=== PATIENT | male | born 1995 | race Hispanic/Latino ===

== ENCOUNTER 2024-03-25 11:21 | Emergency (ER) | payer SELFPAY ==
[2024-03-25 11:24] VITALS: BP 148/99
[2024-03-25 12:04] LABS: % Basophils 0.2 % (0-2); % Eosinophils 0.7 % (0-6); % Immature Granulocytes 0.2 % (0-0.5); % Lymphocytes 27.4 % (20.5-51.1); % Neutrophils 64.5 % (42.2-75.2); Absolute Eosinophils 0.1 10^3/uL (0-0.7); Absolute Lymphocytes 2.5 10^3/uL (1.2-3.4); Absolute Monocytes 0.6 10^3/uL (0.1-0.6); Absolute Neutrophils 5.9 10^3/uL (1.4-6.5); Hematocrit 41.3 % (39.0-52.0); Hemoglobin 14.5 g/dL (13.0-18.0); Mean Corp Hgb Conc. 35.1 g/dL (33.0-37.0); Mean Corpuscular Hgb 30.5 pg (27.0-31.0); Mean Corpuscular Volume 86.9 fL (80.0-94.0); Mean Platelet Volume 9.7 fL (7.4-10.4); Nucleated Red Blood Cells % 0 % (-); Platelet Count 298 10^3/uL (130-400); Red Blood Cell Count 4.75 10^6/uL (4.70-6.10); Red Cell Dist. Width 12.3 % (11.5-14.5); White Blood Cell Count 9.1 10^3/uL (4.8-10.8)
[2024-03-25 12:16] LABS: ALT (SGPT) 16 U/L (0-50); AST (SGOT) 22 U/L (17-59); Albumin 4.6 g/dl (3.5-5.0); Alkaline Phosphatase 67 U/L (38-126); Blood Urea Nitrogen 13 mg/dl (9-20); Calcium 9.6 mg/dl (8.4-10.2); Carbon Dioxide 31 mmol/L (22-30); Chloride 100 mmol/L (98-107); Glucose 95 mg/dl (70-99); Potassium 4.2 mmol/L (3.5-5.1); Sodium 142 mmol/L (135-145); Total Bilirubin 0.5 mg/dl (0.2-1.3); Total Protein 7.8 g/dl (6.3-8.2); eGFR > 60.00
[2024-03-25] MEDS: PROTONIX IV 40 MG IV (12:20)
[2024-03-25] MEDS: CARAFATE 1 GRAM PO (12:20)
--- NOTE | 2024-03-25 12:21 | ED.GENMED ---
History of Present Illness
<Jey Frazier MD, Resident - Last Filed: 03/25/24 14:21>
General
Chief Complaint: Abdominal Pain
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
Time Seen by Provider: 03/25/24 11:34
Travel History
Have you traveled to any high risk areas for coronavirus over the past 14 days?: No
Have you had any contact with someone who has COVID-19?: No
Do you have any symptoms of coronavirus? Fever > 100 degrees, chills, cough, shortness of breath, sore throat, loss of taste or smell, muscle aches, or headache?: No
History of Present Illness
History of Present Illness:
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 He has been having worsening pain for a few days. Not associated with eating habits. No discernible
alleviating or exaggerating factors. He has been taking doxycycline 100 mg once a day for the past 3 months; he tries to take that with food but is not able to with a full meal at times. He has mild nausea and LUQ tenderness. He has intermittent
diarrhea and constipation, which is not unusual for him. Denies noticing blood or mucus in stools, or darkened stools.
Past History
<Jey Frazier MD, Resident - Last Filed: 03/25/24 14:21>
Past History
ED Past Medical History: Other (acne vulgaria)
Social History
Tobacco: Former smoker
Alcohol: Occasional
Drug: None
Review of Systems
<Jey Frazier MD, Resident - Last Filed: 03/25/24 14:21>
Review of Systems
All Other Systems: Not applicable
Constitutional: Reports no symptoms
EENT: Reports no symptoms
Respiratory: Reports no symptoms
Cardiac: Reports no symptoms
ABD/GI: Reports abdominal pain and nausea
: Reports no symptoms
Musculoskeletal: Reports no symptoms
Skin: Reports no symptoms
Neurological: Reports no symptoms
Endocrine: Reports no symptoms
Hematologic/Lymphatic: Reports no symptoms
Psychiatric: Reports no symptoms
Phy Exam
<Jey Frazier MD, Resident - Last Filed: 03/25/24 14:21>
General Physical Exam
General Presentation: well appearing and no apparent distress
General Skin: warm and dry
General Habitus: normal
General Mental: alert
General Hydration: appears well hydrated
ENT Exam
ENT Exam: EOMI, pharynx normal, neck supple and normocephalic
Eye Exam
Eye Exam: PERRL, cornea clear and conjunctiva normal
Cardiovascular Exam
Cardiovascular Exam: regular rate/rhythm, no edema, no murmur and normal peripheral pulses
Pulmonary Exam
Pulmonary Exam: lungs clear, no respiratory distress, no rales, no crackles, no rhonchi, no stridor, no wheezing and no cough
Gastrointestinal Exam
Gastrointestinal Exam: normal bowel sounds, soft, no organomegaly, no pulsatile mass, non distended and tender (LUQ and epigastric - mild)
Neurological Exam
Neurological Exam: alert, oriented x3, no motor deficits and speech normal
Musculoskeletal Exam
Musculoskeletal Exam: full ROM and no edema
Skin Exam
Skin Exam: normal color, warm/dry, no rash and no petechia
Psychiatric Exam
Psychiatric Exam: normal mood/affect
Course
<Jey Frazier MD, Resident - Last Filed: 03/25/24 14:21>
Orders/Labs/Results
Orders:
Orders
03/25/24 11:53
Complete Blood Count/With Diff Urgent
Comprehensive Metabolic Panel Urgent
03/25/24 12:13
Pantoprazole [Protonix IV] 40 mg IV NOW STA
Sucralfate [Carafate] 1 gram PO NOW STA
03/25/24 12:14
CT Abd/pel Without Iv Or Oral Urgent
Comment:
Reason For Exam: progressive LUQ abdominal pain
Abnormal Lab Results
03/25/24
11:53
Carbon Dioxide 31 H mmol/L
(22-30)
03/25/24 11:53
03/25/24 11:53
Vital Signs
Initial and Last Documented VS:
Initial Vital Signs
Pulse Resp BP Pulse Ox
74 20 148/99 100
03/25/24 11:24 03/25/24 11:24 03/25/24 11:24 03/25/24 11:24
Last Documented Vital Signs
Temp Pulse Resp BP Pulse Ox
98.3 F 74 20 148/99 100
03/25/24 11:29 03/25/24 11:24 03/25/24 11:24 03/25/24 11:24 03/25/24 11:24
<Tristan Paredes, DO - Last Filed: 03/25/24 12:28>
Orders/Labs/Results
Orders:
Orders
03/25/24 11:53
Complete Blood Count/With Diff Urgent
Comprehensive Metabolic Panel Urgent
03/25/24 12:13
Pantoprazole [Protonix IV] 40 mg IV NOW STA
Sucralfate [Carafate] 1 gram PO NOW STA
03/25/24 12:14
CT Abd/pel Without Iv Or Oral Urgent
Comment:
Reason For Exam: progressive LUQ abdominal pain
Abnormal Lab Results
03/25/24
11:53
Carbon Dioxide 31 H mmol/L
(22-30)
03/25/24 11:53
03/25/24 11:53
Vital Signs
Initial and Last Documented VS:
Initial Vital Signs
Pulse Resp BP Pulse Ox
74 20 148/99 100
03/25/24 11:24 03/25/24 11:24 03/25/24 11:24 03/25/24 11:24
Last Documented Vital Signs
Temp Pulse Resp BP Pulse Ox
98.3 F 74 20 148/99 100
03/25/24 11:29 03/25/24 11:24 03/25/24 11:24 03/25/24 11:24 03/25/24 11:24
<Jey Frazier MD, Resident - Last Filed: 03/25/24 14:21>
*Critical Care Note
Total Time (30-74mins, 75-104mins- exclusive of procedures): Not Applicable
ED Attending Note
<Jey Frazier MD, Resident - Last Filed: 03/25/24 14:21>
-
Portions of this chart may have been created with voice recognition software.� Occasional wrong word or��sound alike� substitutions may have occurred due to the inherent limitations of voice recognition software.
<Tristan Paredes, DO - Last Filed: 03/25/24 12:28>
ED Attending Note
Patient seen and examined by attending physician: Yes
I performed a history and physical exam of patient and discussed management with resident, I reviewed resident's note and agree with documented findings and plan of care.: Yes
ED Attending Note:
I have seen and evaluated the patient with a [id number] encounter. I have spoken to the resident and involved in the medical history, the physical exam, medical decision making.
Evaluation and management service: agree unless noted differently below.
Results interpretation: agree unless noted differently below.
Focused HPI: 28-year-old male presenting for evaluation of epigastric and left upper quadrant abdominal pain. It is not significantly worse with food intake. He denies fevers or vomiting. He is on doxycycline for acne
Physical exam: Mild left upper quadrant tenderness. No rebound. Otherwise comfortable appearing
Medical Decision Making: We discussed likely gastritis from his doxycycline. Will obtain CT to rule out kidney stone pathology and will start Protonix
Discharge Plan
Departure
Patient Disposition: Home (Routine Discharge)
Date of Disposition: 03/25/24
Time of Disposition: 14:16
Patient with high blood pressure during this ER visit?: Yes
Condition: Good
Discharge Problem:
Acute gastritis, Esophagitis due to doxycycline
Instructions: Gastritis
Referrals:
NONE,* [Family Provider] -
Activity Restrictions/Additional Instructions:
Stop doxycycline and switch to a different medication. Take sucralfate and famotidine [id number] medications.
Interventions
Interventions:
*Risk Screen - Suicide Last Done: 03/25/24 11:24
*General Assessment Last Done: 03/25/24 11:24
*Neglect/Abuse Screening Last Done: 03/25/24 11:24
ED- Fall Risk Assessment Last Done: 03/25/24 11:44
*ED COVID-19 Vaccine History Last Done: 03/25/24 11:38
FQ-[id number]-[id number] Assessment Last Done: 03/25/24 11:38
Discharge Date and Time
Print Language: BRAZILIAN
[2024-03-25 14:46] VITALS: BP 150/95
== END 2024-03-25 14:47 | disposition home or self-care (01) ==
LOC: EMR 11:21
PROVIDERS: Student in an Organized Health Care Education/Training Program; EMERGENCY PHYSICIAN Student in an Organized Health Care Education/Training Program
DX: K29.00 Acute gastritis without bleeding (principal); K20.80 Other esophagitis without bleeding; R03.0 Elevated blood-pressure reading, without diagnosis of hypertension; L70.0 Acne vulgaris; Z87.891 Personal history of nicotine dependence
CPT/HCPCS: 99284; 96374; 74176; 80053; 85025